=== PATIENT | female | born 1955 | race Caucasian/White ===

== ENCOUNTER 2020-04-06 09:28 | Emergency (ER) | payer OTHER, SELFPAY ==
[2020-04-06 09:36] VITALS: BP 140/73; PULSE 68; RESP 16; TEMP 36.5; O2SAT 100
--- NOTE | 2020-04-06 10:14 | ED.SKABFB ---
HPI - Skin/Abscess/Foreign Bdy General Chief complaint: Skin/Abscess/Foreign Body Stated complaint: left hand bite Time Seen by Provider: 04/06/20 09:55 Source: patient and RN notes reviewed Mode of arrival: ambulatory Limitations: no limitations History of Present Illness HPI narrative: Patient presents today complaining of swelling and redness to her left third finger. She believes that she was bit by a spider 1 week ago. She saw her primary care nurse practitioner 4 days ago, but was told that she did not need antibiotics at that time. Since that visit, her symptoms have significantly worsened and she is now draining pus. A few days after onset of symptoms, patient did find a spider in her bed. She has been cleaning with peroxide, applying ice, and Neosporin without relief. MD complaint: insect bite/sting Related Data Home Medications Medication Instructions Recorded Confirmed amlodipine 5 mg tablet 5 mg PO DAILY 10/11/19 04/06/20 bimatoprost 0.01 % eye drops 1 drop EACH EYE DAILY 10/11/19 04/06/20 cholecalciferol (vitamin D3) 50 2,000 unit PO DAILY 10/16/19 04/06/20 mcg (2,000 unit) tablet timolol 0.5 % eye drops 1 drop EACH EYE DAILY ml 10/16/19 04/06/20 atorvastatin 20 mg tablet 20 mg PO DAILY 10/28/19 04/06/20 Allergies Allergy/AdvReac Type Severity Reaction Status Date / Time latex Allergy Hives Verified 04/06/20 09:41 Review of Systems Review of Systems: Narrative: CONSTITUTIONAL: Denies body aches, fever, chills, or sweats. EYES: Denies visual changes, redness, or discharge. ENT: Denies rhinorrhea, congestion, sore throat, or otalgia. CARDIOVASCULAR: Denies chest pain, palpitations, or edema. RESPIRATORY: Denies cough or dyspnea. GASTROINTESTINAL: Denies abdominal pain, nausea, vomiting, or diarrhea. GENITOURINARY: Denies dysuria or hematuria. SKIN: D abscess and swelling to the left third finger MUSCULOSKELETAL: Denies back pain, joint pain, or myalgia. NEUROLOGIC: Denies headache, numbness, tingling, or weakness. PSYCH: Denies depression or anxiety. [facility] Social History Social History Smoking status: Never smoker Second hand tobacco smoke exposure: No Alcohol intake: current Comments At time of signature, I have reviewed and agree with nursing past medical, surgical, social and family history unless otherwise noted. Please see nursing chart for further information. There is no relevant family history pertinent to the presenting complaint Exam Narrative: Exam Narrative: GENERAL: Well-appearing, well-nourished, and in no acute distress. HEAD: Normocephalic, atraumatic. EYES: EOMI. No redness or drainage. Conjunctivae normal. ENT: Mucous membranes pink and moist. NECK: Normal AROM. CHEST: No respiratory distress. EXTREMITIES: Normal range of motion. No edema. SKIN: Warm, dry, no rash. Capillary refill normal. Normal skin turgor. Left 3rd finger: 2x2cm erythematous abscess with multiple pustules to the dorsum of the proximal phalax, dorsal aspect. Large amount of purulent material manually expressed. Tender to palpation. Distal sensation intact. Full AROM of the finger. NEURO: No focal deficits. Alert and oriented x3. Gait steady. PSYCH: Normal affect. No signs of depression or anxiety. Course Vital Signs Vital signs: Vital Signs Temperature 97.7 F 04/06/20 09:36 Pulse Rate 68 04/06/20 09:36 Respiratory Rate 16 04/06/20 09:36 Blood Pressure 140/73 04/06/20 09:36 Pulse Oximetry 100 04/06/20 09:36 Temperature 97.7 F 04/06/20 09:36 Pulse Rate 68 04/06/20 09:36 Respiratory Rate 16 04/06/20 09:36 Blood Pressure 140/73 04/06/20 09:36 Pulse Oximetry 100 04/06/20 09:36 Reviewed. Pt has been instructed to follow up with her PCP regarding her elevated blood pressure today. MDM - Skin/Abscess/Foreign Bdy Differential Diagnosis Differential diagnosis: Likely abscess of skin or subcutane
== END 2020-04-06 10:23 | disposition home or self-care (01) ==
PROVIDERS: Emergency Provider Nurse Practitioner; PCP Internal Medicine
DX: L02.414 Cutaneous abscess of left upper limb (principal); I10 Essential (primary) hypertension; E03.9 Hypothyroidism, unspecified
CPT/HCPCS: 99213; G0463

== ENCOUNTER 2020-08-02 08:54 | Outpatient (CLI) | payer OTHER, SELFPAY ==
--- NOTE | ~2020-08-02 | MM_ITS ---
EXAMINATION: MM screening felicia BI w bonita HISTORY: Screening TECHNIQUE: Craniocaudal and mediolateral oblique 3-D tomosynthesis images were obtained and synthetic 2-D images were generated. CAD analysis was submitted and interpreted. COMPARISON: Comparison to multiple prior studies sequentially, with oldest reviewed study dated 11/14. BREAST PARENCHYMAL COMPOSITION: There are scattered areas of fibroglandular density. FINDINGS: There is no evidence of suspicious mass, calcification, or architectural distortion to sugg est malignancy in either breast. There has been no suspicious interval change. IMPRESSION: 1. No mammographic evidence of malignancy. 2. Recommend routine screening mammography in one year. BI-RADS Category 1: Negative Reviewed, dictated and finalized at location A.
--- NOTE | ~2020-08-02 | US_ITS ---
EXAMINATION: US aorta [facility] DATE: 08/02/2020 08:45 INDICATION: Screening for abdominal aortic aneurysm TECHNIQUE: Grayscale, color Doppler, and pulsed Doppler images of the aorta and common iliac arteries were obtained. COMPARISON: None. FINDINGS: The proximal aorta measures 2.2 cm AP. The mid aorta measures 2.2 cm AP. The distal aorta measures 1. 7 cm AP. The right common iliac artery measures 1.3 cm. The left common iliac artery measures 1.0 cm. IMPRESSION: 1. Normal caliber abdominal aorta. Reviewed, dictated and finalized at location A.
== END 2020-08-02 08:55 | disposition home or self-care (01) ==
PROVIDERS: PCP Internal Medicine; Visit Provider Internal Medicine
DX: Z12.31 Encounter for screening mammogram for malignant neoplasm of breast (principal)
CPT/HCPCS: 76706; 77063; 77067

== ENCOUNTER 2022-01-22 13:45 | Outpatient (CLI) | payer OTHER, SELFPAY ==
--- NOTE | ~2022-01-22 | US_ITS ---
EXAMINATION: US thyroid EXAM DATE: 01/22/2022 14:19 INDICATION: E04.1 - Nontoxic single thyroid nodule. TECHNIQUE: Multiple grayscale and Doppler images of the thyroid were obtained (by a technologist who performed the scan) and subsequently reviewed. Individual nodules and recommendations may be reporte d in accordance with TI-RADS system as designated by the 2017 ACR White Paper TI-RADS committee. Comp arison is made to prior examination from 04/07/2019, 03/08/2017. FINDINGS: The right thyroid lobe measures 2.9 x 1.4 x 1.0 cm, the left measuring 3.0 x 1.1 x 1.0 cm. There is d iffusely heterogeneous thyroid echogenicity. Again there is a left thyroid lobe category TR 4 nodule measuring 7 x 5 x 7 mm, stable consistent with benign histology. IMPRESSION: Subcentimeter left thyroid lobe nodule unchanged, consistent with benign histology. Reviewed, dictated and finalized at location B. IMPRESSION: Subcentimeter left thyroid lobe nodule unchanged, consistent with b enign histology.
== END 2022-01-22 13:46 | disposition home or self-care (01) ==
LOC: ANHIMG 13:50
PROVIDERS: PCP Internal Medicine; Visit Provider Internal Medicine
DX: E04.1 Nontoxic single thyroid nodule (principal)
CPT/HCPCS: 76536

== ENCOUNTER 2022-09-10 15:36 | Outpatient (CLI) | payer OTHER, SELFPAY ==
--- NOTE | ~2022-09-10 | MM_ITS ---
EXAMINATION: MM screening felicia BI w bonita HISTORY: Screening TECHNIQUE: Craniocaudal and mediolateral oblique 3-D tomosynthesis images were obtained and synthetic 2-D images were generated. CAD analysis was submitted and interpreted. COMPARISON: Comparison to multiple prior studies sequentially, with oldest reviewed study dated 11/14. BREAST PARENCHYMAL COMPOSITION: There are scattered areas of fibroglandular density. FINDINGS: There is no evidence of suspicious mass, calcification, or architectural distortion to sugg est malignancy in either breast. There has been no suspicious interval change. IMPRESSION: 1. No mammographic evidence of malignancy. 2. Recommend routine screening mammography in one year. BI-RADS Category 1: Negative Reviewed, dictated and finalized at location A. [employer]
== END 2022-09-10 15:37 | disposition home or self-care (01) ==
PROVIDERS: PCP Family Medicine; Visit Provider Family Medicine
DX: Z12.31 Encounter for screening mammogram for malignant neoplasm of breast (principal)
CPT/HCPCS: 77063; 77067

== ENCOUNTER 2022-11-11 12:38 | Outpatient (CLI) | payer OTHER, SELFPAY ==
--- NOTE | ~2022-11-11 | US_ITS ---
Pelvic ultrasound. Clinical History: Postmenopausal bleeding Technique: Realtime transabdominal and transvaginal scanning of the pelvis was performed. Color flow Doppler and Doppler spectral analysis were performed. Findings: The uterus is anteverted. The endometrial stripe has a thickness of 3 mm. No focal mass is identified. The right ovary measures 1.6 x 1.7 x 2.3 cm. No significant right ovarian or adnexal mass is seen. The left ovary measures 2.7 x 1.8 x 2.6 cm. No significant left ovarian or adnexal mass is seen. There is no evidence of free fluid in the cul de sac. Impression: Unremarkable pelvic ultrasound. No abnormal endometrial thickening. Reviewed, dictated and finalized at [facility]. HOBBER Impression: Unremarkable pelvic ultrasound. No abnormal endometrial thickening.
== END 2022-11-11 12:39 | disposition home or self-care (01) ==
PROVIDERS: PCP Family Medicine; Visit Provider Family Medicine
DX: N95.0 Postmenopausal bleeding (principal)
CPT/HCPCS: 76830

== ENCOUNTER 2023-03-18 13:38 | Outpatient (CLI) | payer OTHER, SELFPAY ==
[2023-03-18 14:30] LABS: Influenza A QL RT-PCR Negative (Negative); Influenza B QL RT-PCR Negative (Negative); RSV RNA, RT-PCR Negative (Negative); SARS-CoV-2 RNA PCR Negative (Negative)
== END 2023-03-18 13:39 | disposition home or self-care (01) ==
PROVIDERS: PCP Family Medicine; Visit Provider Family Medicine
DX: R09.81 Nasal congestion (principal); Z20.822 Contact with and (suspected) exposure to COVID-19
CPT/HCPCS: 87637

== ENCOUNTER 2023-07-05 13:20 | Outpatient (RCR) | payer OTHER, SELFPAY ==
[2023-07-05 13:27] VITALS: BP_SYST 88
--- NOTE | 2023-07-05 16:53 | PTOPEVAL1 ---
Assessment and note entered by Phill Birch, PT, DPT Evaluation Information Assessment Status Evaluation Diagnosis R shoulder pain Subjective Information Pt states her shoulder is doing much better now compared to when last saw her doctor. Looking back now she states this is from overworking with weights and resistance bands during silver sneakers. She states life got busy and she was not able to attend classes for a few years and she thinks this really helped. She states when sleeping on her R shoulder she will get pain. She also reports feeling a small popping feeling. Reported Pain Level Pain Score 1: Self Report Assessment PT Clinical Summary Markus presents to therapy today for her initial evaluation with a diagnosis of R shoulder pain. Today she demonstrates decreased R shoulder active and passive ROM when compared to her L shoulder but strength is about equal. She has an asymmetric resting position of her scapulae. She reports pain with resistance at end shoulder ROM. She states she plans to get back to her regular exercise routine and would like to try that and the HEP she was issued today for a few weeks and see if her shoulder gets better on its own. She will follow up in one month if needed Plan of Care Interventions Electrical Stimulation,Hot Pack/Cold Pack,Manual Therapy,Neuro Re-education,Patient/Caregiver Educati,Therapeutic Activities,Therapeutic Exercise PT Services Indicated Yes Treatment Frequency and follow up in 1 month Duration These treatments will address the objective and functional deficits as defined above. The patient will be advanced safely and appropriately in order for the patient to progress towards his/her prior level of function. Additional exercises will be introduced and as well as a comprehensive home exercise program upon discharge, if needed, ?to ensure carryover of functional gains achieved in the clinic. This treatment plan has been reviewed and agreement upon by the patient.
--- NOTE | 2023-08-09 08:57 | PTOPDC ---
Assessment and note entered by Phill Birch, PT, DPT Evaluation Information Assessment Status Discharge - Pt Not Present Diagnosis R shoulder pain Subjective Information Pt called and states she has been doing her exercises and her shoulder is doing really well. She does not feel like she needs to return to therapy. Assessment PT Clinical Summary Mica was evaluated on 07/05/23 and has not completed any subsequent treatment. She will be discharged at this time per her request.
== END 2023-08-09 10:10 | disposition home or self-care (01) ==
LOC: ANHGOSHPT 13:20
PROVIDERS: PCP Family Medicine; Visit Provider Family Medicine
DX: M25.511 Pain in right shoulder (principal)
CPT/HCPCS: 97110; 97140; 97161

== ENCOUNTER 2024-01-10 12:47 | Outpatient (CLI) | payer OTHER, SELFPAY ==
--- NOTE | ~2024-01-10 | DEXA_ITS ---
Bone Density Report Name: MEGGAN CRAMER Age: 68 Sex: Female Ethnicity: White Date of : 1955 Indication: postmenopausal; screening for osteoporosis; height loss; Referring Provider: KENNY ACEVEDO Study: Bone densitometry was performed. Exam Date: January 10, 2024 Accession number: [id number] Bone Density: Region BMD T-score Z-score Classification AP Spine(L1-L4) 1.154 1.0 3.0 Normal Femoral Neck (Left) 0.800 -0.4 1.3 Normal Total Hip (Left) 1.080 1.1 2.6 Normal Femoral Neck (Right) 0.770 -0.7 1.0 Normal Total Hip (Right) 1.070 1.1 2.5 Normal Total Hip Mean 1.075 1.1 2.6 Normal World Health Organization criteria for BMD impression classify patients as: Normal (T-score at or above -1.0), Osteopenia (T-score between -1.0 and -2.5), or Osteoporosis (T-score at or below -2.5). 10-year Fracture Risk: FRAX not reported because: All T-scores for Spine Total, Hip Total, Femoral Neck at or above -1.0 Clinical Information Provided by Patient: Has used the following medications: Vitamin D Patient maximum height was 61.5 No regular weight bearing exercise Drinks caffeinated beverages Onset of menses at age 13 Number of children 2 Impression: The patient has normal bone mass. Discussion: BONE DENSITY IS ABOVE THE MINIMUM DESIRABLE LEVEL AT ALL SKELETAL SITES TESTED. This patient?s bone mineral density is above the minimum desirable level (T-score -1.0 or better) at all sites measured. The patient should follow a healthful lifestyle (good nutrition with adequate calcium and vitamin D, and appropriate weight-bearing exercise). Follow-Up: Consider repeating this study in 5 years or sooner if there is some new clinical indication. Reported by: MERISSA on 01/10/2024 1:27:00 PM. Reviewed, dictated and finalized at location AJorge Luis [facility]
--- NOTE | ~2024-01-10 | MM_ITS ---
EXAMINATION: MM screening felicia BI w bonita HISTORY: Screening TECHNIQUE: Craniocaudal and mediolateral oblique 3-D tomosynthesis images were obtained and synthetic 2-D images were generated. CAD analysis was submitted and interpreted. COMPARISON: Comparison to multiple prior studies sequentially, with oldest reviewed study dated 03/08. BREAST PARENCHYMAL COMPOSITION: Not dense: There are scattered areas of fibroglandular density. FINDINGS: There is no evidence of suspicious mass, calcification, or architectural distortion to sugg est malignancy in either breast. There has been no suspicious interval change. IMPRESSION: 1. No mammographic evidence of malignancy. 2. Recommend routine screening mammography in one year. BI-RADS Category 1: Negative Reviewed, dictated and finalized at location A.
== END 2024-01-10 12:48 | disposition home or self-care (01) ==
PROVIDERS: PCP Family Medicine; Visit Provider Family Medicine
DX: Z12.31 Encounter for screening mammogram for malignant neoplasm of breast (principal); Z13.820 Encounter for screening for osteoporosis; Z78.0 Asymptomatic menopausal state
CPT/HCPCS: 77063; 77067; 77080

== ENCOUNTER 2025-06-30 11:40 | Emergency (ER) | payer MEDICARE, SELFPAY ==
--- OUTSIDE RECORDS SUMMARY | 2010-07-17 04:15 | XMS_ITS | Continuity of Care Document ---
Author Organization [facility] Address [address] [place] [address] Phone Care Team Providers Care Digital Art Director Name Role Phone ShanellebettyManny Unavailable Unavailable Procedures Procedure Date Office/outpatient Visit, Est Fundus Photography W/ Report Office/outpatient Visit, Est Eye Exam Established Pt Office/outpatient Visit, Est Visual Field Examination(s) Office/outpatient Visit, Est Fundus Photography W/ Report Office/outpatient Visit, Est Visual Field Examination(s) Office/outpatient Visit, Est Office/outpatient Visit, Est Fundus Photography W/ Report Visual Field Examination(s) Office/outpatient Visit, Est Eye Exam Established Pt Post-op Follow-up Visit Laser Surgery Of Eye Advance Directives Directive Yes / No Effective Date File Name No Information Encounters Encounter Description Practice Location Reason(s) For Visit Diagnoses Date Provider Providers Copied on Encounter Office/outpat ient Visit, Est [employer], located within [facility], [address], [place], [place], [address], [place] tel:[phone] [facility] No Information Sep-2 3-201 0 Doisy Edward. [facility] , [address], [place], [place], [facility], [place]. tel:[phone] Referring Provider: Manny Barr, [facility] [address], [place], [place], [facility]. tel:[phone] Office/outpat ient Visit, [facility], [address] [place] [address] [address], [place], [place], [address], [place] tel:[phone] [facility] [place] No Information Apr- 9-201 0 Krishnasamy Yazan. [facility] [address], [place], [place], [facility], [place]. tel:[phone] [facility], [address] [place] [address] [address], [place], [place], [address], [place] tel:[phone] SEC [facility] No Information Apr-2 9-201 0 Mead OD Ziggy. [facility] , [address], [place], [place], [facility], [place]. tel:[phone] Office/outpat ient Visit, [facility], [address] [place] [address] [address], [place], [place], [address], [place] tel:[phone] SEC [facility] No Information Apr-2 6-201 0 Jesus Bryant. [address] [place], [place] [address]ate Center , [address], [place], [place], [facility], [place]. tel:[phone] [facility] Eye [facility], [address] [place] [address] [address], [place], [place], [address], [place] tel:[phone] SEC [facility] No Information Dec-2 8-200 9 Jesus Bryant. [address] [place], [place] [address]ate Center , [address], [place], [facility], [place]. tel:[phone] Referring Provider: Manny Barr, [facility] [address], [place], [facility]. tel:[phone] Office/outpat ient Visit, [facility], [address], [place], [place], [address], [place] tel:[phone] SEC [facility] No Information May-3 1-200 9 Jesus Bryant. [address] , [address], [place], [facility], . tel:[phone] Referring Provider: Manny Barr, [facility] [address], [place], [facility]. tel:[phone] Office/outpat ient Visit, [facility], [address] [place] [address] [address], [place], [place], [address], [place] tel:[phone] SEC [facility] No Information Apr-0 8-200 9 Krishnasamy Yazan. [address] [place], [place] [address]ate [address], [place], [facility], [place]. tel:[phone] [facility] Eye [facility], [address], [place], [place], [address], [place] tel:[phone] SEC [facility] No Information Dec-0 1-200 8 Jesus Bryant. [address] [place], [place] [address]ate Center , [address], [place], [facility], [place]. tel:[phone] Referring Provider: Manny Barr, [facility] [address], [place], [facility]. tel:[phone] Office/outpat ient Visit, [facility], [address] [place] [address] [address], [place], [place], [address], [place] tel:[phone] [facility] [place] No Information Apr-2 3-200 8 Jesus Bryant. [address] [place], [place] [address]ate Center , [address], [place], [facility], [place]. tel:[phone] Office/outpat ient Visit, Est [facility], [address] [place] [address] [address], [place], [place], [address], [place] tel:[phone] SEC [facility] No Information 8-200 8 Jesus Bryant. [address] [facility] , [address], [place], [facility], . tel:[phone] Referring Provider: Manny Barr, [facility] [address], [place], [facility]. tel:[phone] [facility], [address], [place], [place], [address], [place] tel:[phone] SEC [facility] No Information Jul-0 1-200 7 Doibetty Bryant. [address] [facility] , [address], [place], [facility], [place]. tel:[phone] Referring Provider: Manny Barr, [facility] [address], [place], [facility]. tel:[phone] Office/outpat ient Visit, Est [facility], [address] [place] [address] [address], [place], [place], [address], [place] tel:[phone] SEC [facility] No Information February-3 0-200 7 Jesus Bryant. [facility]sie Guerrero, [address], [place], [facility], [place]. tel:[phone] [facility], [address], [place], [place], [address], [place] tel:[phone] SEC [facility] No Information Jan-1 3-200 7 Jesus Bryant. [facility] , [address], [place], [facility], [place]. tel:[phone] [facility], [address], [place], [place], [address], [place] tel:[phone] SEC [facility] No Information Dec-2 1-200 7 Jesus Bryant. [address] [facility] [place] , [address], [place], [address], [place]. tel:[phone] [facility], [address], [place], [place], [address], [place] tel:[phone] SEC [facility] No Information 200 7 Jesus Bryant. [address] [facility] , [address], [place], [address], [place]. tel:[phone] Family History Family Member Type Diagnosis Age At Onset No Information Payers Payer name Insurance type Covered republican ID Authoriza tion(s) No Information Social History Type Description Quantity Date Captured Comments Sex Female Smoking Status No Information Chief Complaint And Reason For Visit No Information Reason For Referral Reason For Referral No Information History Of Present Illness Encounter Date Complaint History Of Prese nt Illness No Information Functional Status Date Functional Assessmen t No Information Instructions Date Instruction Additional Infor mation No Information Assessments Type Assessment Date No Information Patient Care Teams Name Effective Dates (start - stop) Status Members No Information
--- OUTSIDE RECORDS SUMMARY | 2010-07-17 04:15 | XMS_ITS | Continuity of Care Document ---
Author Organization [facility] Address [address] [place] [address] Phone Care Team Providers Care Drive Tester Name Role Phone ShanellebettyManny Unavailable Unavailable Procedures [...] Copied on Encounter Office/outpat ient Visit, [facility], [address], [place], [place], [address], [place] tel:[phone] [facility] No Information Sep-2 3-201 0 Doisy Edward. [facility] , [address], [place], [place], [facility], [place]. tel:[phone] Referring Provider: Manny Barr, [facility] [address], [place], [facility]. tel:[phone] Office/outpat ient Visit, [facility], [address] [place] [address] [address], [place], [place], [address], [place] tel:[phone] [facility] [place] No Information Apr- 9-[address] [facility] [address], [place], [facility], [place]. tel:[phone] Located within [facility], [address] [place] [address] [address], [place], [place], [address], [place] tel:[phone] SEC [facility] No Information Apr-2 9-201 [address] Mead [address] Ziggy. [facility] , [address], [place], [facility], [place]. tel:[phone] Office/outpat ient Visit, [facility], [address] [place] [address] [address], [place], [place], [address], [place] tel:[phone] SEC [facility] No Information Apr-2 6-201 0 Jesus Bryant. [address] [place], [place] [address]ate Center , [address], [place], [facility], [place]. tel:[phone] [facility], [address] [place] [address] [address], [place], [place], [address], [place] tel:[phone] SEC [facility] No Information Dec-2 8-200 9 Jesus Bryant. [address] [place], [place] [address]ate Center , [address], [place], [facility], [place]. tel:[phone] Referring Provider: Manny Barr, [facility] [address], [place], [facility]. tel:[phone] Office/outpat ient Visit, [facility], [address], [place], [place], [address], [place] tel:[phone] SEC [facility] No Information May-3 1-200 9 Jesus Bryant. [address] , [address], [place], [facility], . tel:[phone] Referring Provider: Manny Brar, [facility] [address], [place], [facility]. tel:[phone] Office/outpat ient Visit, [facility], [address] [place] [address] [address], [place], [place], [address], [place] tel:[phone] SEC [facility] No Information Apr-0 8-200 9 Krishnasamy Yazan. [address] [place], [place] [address]ate [address], [place], [facility], [place]. tel:[phone] [facility], [address], [place], [place], [address], [place] tel:[phone] SEC [facility] No Information Dec-0 1-200 8 Jesus Bryant. [address] [place], [place] [address]ate Center , [address], [place], [facility], [place]. tel:[phone] Referring Provider: Manny Barr, [facility] [address], [place], [facility]. tel:[phone] Office/outpat ient Visit, [facility], [address] [place] [address] [address], [place], [place], [address], [place] tel:[phone] [facility] [place] No Information Apr-2 3-200 8 Jesus Bryant. [address] [place], [place] [address]ate Center , [address], [place], [facility], [place]. tel:[phone] Office/outpat ient Visit, Est [facility], [address] [place] [address] [address], [place], [place], [address], [place] tel:[phone] SEC [facility] No Information 8-200 8 Jesus Bryant. [address] [facility] , [address], [place], [facility], . tel:[phone] Referring Provider: Manny Barr, [facility] [address], [place], [facility]. tel:[phone] Located within [facility], [address], [place], [place], [address], [place] tel:[phone] SEC [facility] No Information Jul-0 1-200 7 Doibetty Bryant. [address] [facility] , [address], [place], [facility], [place]. tel:[phone] Referring Provider: Manny Barr, [facility] [address], [place], [facility]. tel:[phone] Office/outpat ient Visit, Est Located within [facility], [address] [place] [address] [address], [place], [place], [address], [place] tel:[phone] SEC [facility] No Information February-3 0-200 7 Jesus Bryant. [facility] Chelsie Guerrero, [address], [place], [facility], [place]. tel:[phone] Located within [facility], [address], [place], [place], [address], [place] tel:[phone] SEC [facility] No Information Jan-1 3-200 7 Jesus Bryant. [facility] , [address], [place], [facility], [place]. tel:[phone] Located within [facility], [address], [place], [place], [address], [place] tel:[phone] [facility] No Information Dec-2 1-200 7 Jesus Bryant. [address] [facility] [place] , [address], [place], [address], [place]. tel:[phone] Located within [facility], [address], [place], [place], [address], [place] tel:[phone] SEC [facility] No Information 200 7 Jesus Bryant. [address] [facility] , [address], [place], [address], [place]. tel:[phone] Family History Family Member Type Diagnosis Age At Onset No Information Payers Payer name Insurance type Covered democrat ID Authoriza tion(s) No Information Social History [...]
--- OUTSIDE RECORDS SUMMARY | 2025-06-30 11:43 | XMS_ITS | Clinical Summary ---
Author Organization [facility] Address [address] [place] [address] Care Team Providers Care Support Dba Name Role Phone Ventura Muse Primary Care Provider [phone] Richard Barba MD Unavailable [phone] Allergies Active Allergy Reactions Criticality Noted Date Comments Latex Redness Low 03/31/2022 Medications amLODIPine (NORVASC) 5 mg tablet take 1 Tablet by oral route every day 0 0 6 Active metoprolol XL (TOPROL-XL) 25 mg 24 hr tablet take 1 tablet by oral route every day 0 0 6 Active loratadine (CLARITIN) 10 mg tabletIndicatio ns:Allergic Rhinitis Take 1 tablet (10 mg total) by mouth as needed for allergies Active acyclovir (ZOVIRAZ) 5 % creamIndication s:cold sores Apply 1 application topically as needed 2 Active levothyroxine (SYNTHROID) 75 mcg tablet Take 1 tablet (75 mcg total) by mouth daily 2 Active pseudoephedrine (SUDAFED) 30 mg tabletIndicatio ns:Nasal Congestion Take 30 mg by mouth every 4 (four) hours as needed for congestion Active oxymetazoline HCl (AFRIN, OXYMETAZOLINE, NASL) Administer 1 spray into affected nostril(s) as needed Active Active Problems Problem Noted Date Diagnosed Date Primary open angle glaucoma (POAG) of both eyes, severe stage 03/31/2022 Overview (05/20/2022): ab externo Xen w/ MMC, Right eye 04/01/22 Assessment & Plan (12/22/2022 3:13 PM PHARMACY ASSOCIATE): S/P XEN/MMC OU - IOP at goal off gtts HVF full with OD with few nonspecific paracentral points. OCT with healthy RNFL OU OK to fit with RGP - soft CTL ok if it does not override the bleb F/U Dr. Barba in 4 mo Assessment & Plan (09/15/2022 12:29 PM PHARMACY ASSOCIATE): XEn OD healing well, OS doing well off steroids. May be able to tolerate IOP in high teens given disc and VF. Will recheck and if at goal ok to D/C F/U with me in 2-3 mo HVF OU/OCT/GCL Assessment & Plan (08/13/2022 10:47 AM CDT): POW1 post XEN OS 10 - Nice bleb - STOP moxifloxacin 4 times daily - Taper durezol 4-3-2 and stay on BID until follow up - Holding IOP lowering medications - Post op instructions reviewed Return: 4 week for post op exam. Sooner if questions or concerns. Will want to discuss contact lens for OD at next visit. Assessment & Plan (08/06/2022 6:25 AM CDT): POD1 post XEN OS 10.10.15 - moxifloxacin 4 times daily - durezol 4 times daily - Holding IOP lowering medications - Post op instructions reviewed Return: 1 week for post op exam. Sooner if questions or concerns. Assessment & Plan (06/30/2022 12:21 PM CDT): IOP OS too high, OD off gtts with IOP at goal. Great result thus far. RBA discussed in detail - she leave in 3 weeks and cannot do surgery until return. Proceed with XEN/MMC OS ab interno. Consulting discusse Assessment & Plan (05/28/2022 1:21 PM CDT): ab externo Xen w/ MMC, Right eye 04/01/22 Right eye: Prednisolone - Qday X 4 days then D/C Holding IOP-lowering drops. Will need new MRx as she is not back to 20/20, no CME on exam - ? Glaucoma VF loss given starting IOP's - can worsen with time Left eye: IOP too high, nervous about surgery but vision has dropped a bit - still ph to 20/20. Rec same procedure as OD given IOP off gtts. Pt would like to observe for now until OD improves. Continue comb 0/2, dorz 0/2 OS, lumigan Qhs OS, add rhopressa Qhs OS F/U IOP check in 4 weeks - if not in lower 20's will proceed. Otherwise hold until vision improves OD. Mac OCT today Assessment & Plan (04/09/2022 11:14 AM CDT): POW1 SP ab externo Xen w/ MMC, Right eye 04/01/22 - iop 12 and diffuse bleb with hypovascularity, vicryls intact, no leak Postoperative instructions were given. The patient is to use: Stop Moxifloxacin OD Durezol QID OD Hold glaucoma drops OD for now Signs, symptoms of retinal detachment, tear, hole, and endophthalmitis were reviewed and the patient is to call immediately for concerns. We discussed that things should improve until they stabilize. Should there be any worsening of pain, vision, or redness the patient is to call. RTC in 2 weeks for iop check to discuss if pt needs surgery OS Other eye: Plan for ab interno Xen w/ MMC OS, pre-op diamox Continue comb 0/2, dorz 0/2 OS Assessment & Plan (04/02/2022 9:40 AM CDT): POD1 SP ab externo Xen w/ MMC, Right eye 04/01/22 - iop 10 right eye (OD) Postoperative instructions were given. The patient is to use: Moxifloxacin QID X 1 week OD Prednisolone Acetate 1% q2 hrs while awake OD vs durezol qid right eye (OD) - c/o intolerance to PF Hold glaucoma drops OD for now Patient is to wear the shield at bedtime X 1 week. Signs, symptoms of retinal detachment, tear, hole, and endophthalmitis were reviewed and the patient is to call immediately for concerns. We discussed that things should improve until they stabilize. Should there be any worsening of pain, vision, or redness the patient is to call. Other eye: Plan for ab interno Xen w/ MMC OS, pre-op diamox Continue 2 classes OS, add dorz BID OS Assessment & Plan (03/31/2022 12:08 PM CDT): IOP way too elevated - given surgery will be back to back - will proceed with XEN over Ahmed for safety. Does not take flonase but has it at home - do not use. Diamo 500 mg PO tonight and tomorrow. Urgeny surgery tomorrow for OD - more vision loss trc APD. Then next week the same OS. Combigan BID OS RBA and consulting discussed, proceed with ab interno XEN/MMC OD tomorrow then OS next week. Primary open angle glaucoma of right eye, severe stage 03/31/2022 Assessment & Plan (04/23/2022 10:31 AM CDT): POW3 SP ab externo Xen w/ MMC, Right eye 04/01/22 - iop 12 and diffuse bleb with hypovascularity, vicryls intact, no leak Postoperative instructions were given. The patient is to use: Durezol QID right eye (OD), when you run out can switch to prednisolone Hold glaucoma drops OD for now Signs, symptoms of retinal detachment, tear, hole, and endophthalmitis were reviewed and the patient is to call immediately for concerns. We discussed that things should improve until they stabilize. Should there be any worsening of pain, vision, or redness the patient is to call. RTC in 2 weeks for iop check to discuss if pt needs surgery OS Other eye: Plan for ab interno Xen w/ MMC left eye (OS) iop 23, pre-op diamox; tried to discuss scheduling today but pt would like to discuss at next appt; Tmax 40's, so borderline iop might be OK; Continue comb 0/2, dorz 0/2 OS Primary open angle glaucoma of left eye, severe stage 03/31/2022 Overview (03/31/2022): Added automatically from request for surgery [id number] Dysfunction of both eustachian tubes 07/25/2017 Assessment & Plan (07/25/2017 7:46 AM CDT): Patient demonstrates mild eustachian tube dysfunction that primarily affecting her during atmospheric changes. Today's otologic examination was unremarkable. Patient was instructed to start fluticasone nasal spray 1 week prior to a planned flight. Patient was also instructed to take Sudafed [id number] the day of flying as well as sprain her nose with oxymetazoline nasal spray 1 hour prior to flight. Patient was also shown how to perform nasal Valsalva maneuver to help ventilate the middle ear space. Essential hypertension 12/25/2015 Overview (01/29/2017): Essential hypertension Hypothyroidism 03/10/2014 Overview (01/28/2017): HYPOTHYROIDISM NOS Immunizations Immunization Administration Dates Next Due Pfizer SARS-CoV-2 Monovalent Vaccination (12+ Yrs) PURPLE 02/12/2021,01/15/2021 Surgical History Surgery Date Site/Laterality Comments CATARACT EXTRACTION W/ INTRAOCULAR LENS IMPLANT 10/25/1996 - 10/24/[address] Lee in [place] TRABECULECTOMY Bilateral x2, Dr. Joyce WISDOM TOOTH EXTRACTION 10/25/1973 - 10/24/1974 SHUNT EXTERNALIZATION 04/01/2022 Right Xen w/ MMC SHUNT EXTERNALIZATION 08/05/2022 Left Xen w/ MMC CATARACT EXTRACTION W/ INTRAOCULAR LENS IMPLANT 10/25/1999 - 10/24/[address] Lee [place] Medical History Medical History Date Comments Disorder of thyroid Thyroid dise ase Glaucoma glaucoma Ear problems Hypertension Delayed emergence from general anesthesia groggy with colonosocpy in past, did well with most recent eye surgery 04/01/22 Family History Medical History Relation Name Comments Other Brother 2 Alive and well; Abdominal Aortic Aneurysm Father AA A; Coronary artery disease Father Chloe nary artery disease; Glaucoma Father Other Father AAA, extensive CAD (sees Dr. Henry), atherosclerosis; Atrial fibrillation Mother Atrial f ibrillation; Cause of : Atrial fibrillation Other Other 1 No family histo ry of Thyroid disorder; Hypothyroidism Other 2 Family histor y of Hypothyroidism; Anesthesia problems Neg Hx Blindness Neg Hx Macular degeneration Neg Hx Relation Name Status Comments Brother 1 Alive Brother 2 Father Alive Mother (Age 81) Other 1 Other 2 Social History Tobacco Use Types Packs/Day Years Used Date Smoking Tobacco: Never Smokeless Tobacco: Never Tobacco Cessation:Counseling Given: Not Answered Alcohol Use Standard Drinks/Week Comments Yes 2 (1 standard drink = 0.6 oz pur e alcohol) AUDIT-C Answer Date Recorded Q1: How often do you have a drink containing alc ohol? 2-3 times a week 08/05/2022 Q2: How many drinks containi ng alcohol do you have on a typical day when you are drinking? 1 or 2 08/05/2022 Frequency of Binge Drinking Not on file 07/25 Comments Unknown Sex and Gender Information Value Date Recorded Sex Assigned at Not on file Legal Sex Female 3:57 AM PHARMACY ASSOCIATE Gender Identity Female 10/04/2024 5:04 AM PHARMACY ASSOCIATE Sexual Orientation Not on file Obstetrics History Last Filed Vital Signs Vital Sign Reading Time Taken Comments Blood Pressure 138/80 10/04/2024 5:33 PM PHARMACY ASSOCIATE Pulse 84 10/04/2024 5:33 PM PHARMACY ASSOCIATE Temperature 36.4 C (97.6 F) 10/04/2024 5:33 PM PHARMACY ASSOCIATE Respiratory Rate 17 10/04/2024 5:33 PM PHARMACY ASSOCIATE Oxygen Saturation 97% 10/04/2024 5:33 PM PHARMACY ASSOCIATE Inhaled Oxygen Concentration - - Weight 59 kg (130 lb) 10/04/2024 5:33 PM PHARMACY ASSOCIATE Height 152.4 cm (5') 10/04/2024 5:33 PM PHARMACY ASSOCIATE Body Mass Index 25.39 10/04/2024 5:33 PM PHARMACY ASSOCIATE Plan of Treatment Health Maintenance Due Date Last Done Comments Breast Cancer Screening-Mammogram 1955 Depression Screening 1955 Hepatitis C Screening 1955 Osteoporosis Screening-Bone Density Scan 1955 DTaP/Tdap/Td Vaccine (1 - Tdap) 1966 Hepatitis B Screening 1973 Pneumococcal vaccine 65+ (1 of 1 - PCV) 2005 Zoster Vaccine (1 of 2) 2005 Colon Cancer Screening-Colonoscopy 10/22/20182007 Well Visit 65+ 2020 Fall Risk Assessment 08/05/2023 08/05/2022 Covid-19 Vaccine ( season) 2024, 01/15/2021 Influenza Vaccine (#1) 2025 Colon Cancer Screening-CT Colonography Discontinued Colon Cancer Screening-DNA Stool Discontinued 10/22/20 Colon Cancer Screening-FIT Discontinued 10/22/2008 Colon Cancer Screening-Sigmoidoscopy Discontinued 09/25 Medical Devices Implanted Type Area Cooler Worker Device Identifier Shelf Expiration Date Model / Serial / Lot [employer] Xen 150um 45um 6mm Treatment System Preload Injector Intraocular Latex Free 5513-001 - [id number] - [id number] Implanted:Qty: 1 on 04/01/2022 by Farida Poon MD at [facility] Other - see comments Right: Eye [employer] [id number] 07/24/2024 5513-001 / [id number] / [id number] [employer] Xen 150um 45um 6mm Treatment System Preload Injector Intraocular Latex Free 5513-001 - [id number] - [id number] Implanted:Qty: 1 on 08/05/2022 by Farida Poon MD at [facility] Other - see comments Left: Eye [employer] [id number] 08/24/2024 5513-001 / [id number] / [id number] Procedures Procedure Name Priority Date/Time Associated Diagnosis Comments COLONOSCOPY 10/22/2008 12:00 AM PHARMACY ASSOCIATE from Last 3 Months or Most Recently Relevant to Health Maintenance Results * COLONOSCOPY (10/22/2008 12:00 AM PHARMACY ASSOCIATE) Anatomical Region Laterality Modality Other Narrative 10/22/2008 12:00 AM PHARMACY ASSOCIATE Ordered by an unspecified provider. Procedure Note ProviderMeg MD - 10/22/2008 12:00 AM CST PROCEDURE REPORT Patient: MICA TOM Account: [id number] Room No: : 1955 Patient Type: OPA Attend.: Andrei Siddiqi M.D. Admit Date:10/22/2008 Dict.: Andrei Siddiqi M.D. Disch. Date: NAME OF PROCEDURE: Colonoscopy HISTORY: A 53-year-old female presents for screening colonoscopy. PHYSICAL EXAMINATION: Well-developed female. Lungs are clear. Cardiovascular examination was unremarkable. PROCEDURE: Colonoscopy was performed with the [employer] video endoscope.The patient was premedicated with Demerol 100, versed 4. On digital exam, shehas grade 2 hemorrhoids. We inserted the endoscope and advanced it to the cecum. The colon was well prepped and visualized. We carefully searchedthe colonic mucosa, could find no evidence of inflammatory or neoplasticchange. We brought the scope back, retroflexed in the rectum, examined the hemorrhoidal tissue internally, straightened the scope and removed it.The patient tolerated the procedure without difficulty. POSTOPERATIVE DIAGNOSIS: Hemorrhoidal disease, otherwise normal. Andrei Siddiqi M.D. DR/johnathon TD: 10/23/2008 06:49 CC: Dr. Ziggy Dela Cruz Historical Provider ENDOSCOPY PROCEDURES Ilsa l Result from Last 3 Months or Most Recently Relevant to Health Maintenance Insurance [facility] Member Subscriber Plan / Payer (Ef fective 2021-Present) Name:Mica Vargas Relation to Subscriber:Self Name:Mica Vargas Payer ID:[id number] (NAIC) Type:MEDICARE RISK OTHER Address: [address] [place] [id number] [facility] Care Teams Support Dba Relationship Specialty Start Date End Date Ventura Muse DO PCP - General Family Medicine 03/31/22 Richard Barba MD [address] [address] Referring Physician Ophthalmology 03/31/22
--- OUTSIDE RECORDS SUMMARY | 2025-06-30 11:43 | XMS_ITS | Clinical Summary ---
Author Organization [facility] Address [address] [place] [address] Care Team Providers Care Casino Surveillance Officer Name Role Phone Daylin Pérez MD Primary Care Provider [phone] Source Comments [facility],non-owned Affiliates and Associated Physician Practices is amultiple site organization consisting of ambulatory clinics and hospital sitesin [place], [place], [place] and [place]. This disclosure is being madepursuant to the Care Everywhere program and may not contain all information available regarding this patient. Last updated 18.[facility] Allergies No known active allergies Medications * Be aware that medications may not be up to date on this document. Alwaysverify current medications with the patient. levothyroxine (SYNTHROID) 75 MCG tablet Take 75 mcg by mouth daily before breakfast Active amLODIPine (NORVASC) 5 MG tablet Take 5 mg by mouth once daily Active metoprolol succinate XL 24hr (TOPROL XL) 25 MG tablet Take 25 mg by mouth once daily Active timolol maleate (TIMOPTIC) 0.5 % ophthalmic solutionIndicat ions:Angle-Clos ure Glaucoma 1 Drop 2 times daily Reasons: Angle-Closure Glaucoma Active bimatoprost (LUMIGAN) 0.01 % ophth solution Instill 1 Drop into both eyes at bedtime Active fluticasone propionate (FLONASE) 50 MCG/ACT nasal sprayIndication s:Seasonal allergic rhinitis due to pollen [place] 2 Sprays into each nostril once daily 1 Bottle 7 Active Social History Tobacco Use Types Packs/Day Years Used Date Smoking Tobacco: Never Comments No Sex and Gender Information Value Date Recorded Sex Assigned at Not on file Legal Sex Female 5:32 PM CDT Gender Identity Not on file Sexual Orientation Not on file Last Filed Vital Signs Vital Sign Reading Time Taken Comments Blood Pressure 136/92 02/02/2017 10:38 AM CDT Pulse 77 02/02/2017 10:38 AM CDT Temperature 37.2 C (98.9 F) 02/02/2017 10:38 AM CDT Respiratory Rate 16 02/02/2017 10:38 AM CDT Oxygen Saturation 98% 02/02/2017 10:38 AM CDT Inhaled Oxygen Concentration - - Weight 63.5 kg (140 lb) 02/02/2017 10:38 AM CDT Height 154.9 cm (5' 1) 02/02/2017 10:38 AM CDT Body Mass Index 26.45 02/02/2017 10:38 AM CDT Plan of Treatment Health Maintenance Due Date Last Done Comments BONE DENSITY TESTING 1955 COLOGUARD (AGES 45-75) - COL ON CA SCREENING 1955 COLON MONITORING 1955 COLONOSCOPY - COLON CA SCREENING 1955 CT COLONOGRAPHY - COLON CA SCREENING 1955 Colorectal Cancer Screening 1955 FIT - COLON CA SCREENING 1955 FLEX SIG - COLON CA SCREENING 1955 LIPID TESTING 1955 MAMMOGRAM 1955 MEDICARE AWV 12 MONTHS 1955 HEPATITIS C SCREENING 03/31/1973 DTAP/TDAP/TD VACCINES (1 - Tdap) 1974 PNEUMOCOCCAL VACCINE 50+ (1 of 1 - PCV) 2005 ZOSTER VACCINE (1 of 2) 2005 DEPRESSION SCREENING 10/25/2024 COVID-19 VACCINE (1 - 2023-2 5 season) 2025 INFLUENZA VACCINE (#1) 2025 Respiratory Syncytial Virus (RSV) Vaccine Pt: or over 60 yrs (1 - 1-dose 75+ series) 2030 HEPATITIS B VACCINE Aged Out No longe r eligible based on patient's age to complete this topic HIB VACCINE Aged Out No longer eligi ble based on patient's age to complete this topic HPV VACCINE Aged Out No longer eligi ble based on patient's age to complete this topic MENINGOCOCCAL (Group B) VACC INE SHARED DECISION-MAKING Aged Out No longer eligibl e based on patient's age to complete this topic MENINGOCOCCAL GROUPS A/C/Y/W VACCINE Aged Out No longer eligible b ased on patient's age to complete this topic Insurance ([employer]) [address] [place], [place] [id number] [place] [address] MEDICARE ADV PPO Care Teams Casino Surveillance Officer Relationship Specialty Start Date End Date Daylin Pérez MD [address] [place] [address] PCP - General Family Medicine 02/02/17
--- OUTSIDE RECORDS SUMMARY | 2025-06-30 11:43 | XMS_ITS | Encounter Summary ---
Author Organization [facility] Address [address] [facility] [place] [address] Care Team Providers Care Speech/Language Therapist Name Role Phone Daylin Pérez MD Primary Care Provider [phone] Encounter Details Date Type Department Care Team (Late st Contact Info) Description 07/25/2024 Lab Requisition [facility] - DermPath Lab [address] [place] [address] Sarah Lind DO [address] [facility] [address] [place] [address] Social History Tobacco Use Types Packs/Day Years Used Date Smoking Tobacco: Never Comments No Sex and Gender Information Value Date Recorded Sex Assigned at Not on file Legal Sex Female 5:32 PM CDT Gender Identity Not on file Sexual Orientation Not on file documented as of this encounter Plan of Treatment Not on file documented as of this encounter Procedures Procedure Name Priority Date/Time Associated Diagnosis Comments DERMATOPATHOLOGY Routine 07/25/2024 10:5 4 AM CDT documented in this encounter Results * DERMATOPATHOLOGY (07/25/2024 10:54 AM CDT) Case Report Dermatopathology Report Case: [id number] Authorizing Provider: Sarah Lind DO Collected: 07/25/2024 10:54 AM Ordering Location: [facility] - Received: 07/25/2024 04:13 PM DermPath Lab Pathologist: Garland Fuller MD Specimen: Skin, right lateral thigh 4:05 PM CDT DERMATOPATHOLOGY LABORATORY Final Diagnosis Specimen A. SKIN, right lateral thigh: TRICHILEMMAL (PILAR) CYST WITH CALCIFICATION (L72.12) 4:05 PM CDT DERMATOPATHOLOGY LABORATORY at 1605 CDT Clinical History DF R/O Atypia 4:05 PM CDT DERMATOPATHOLOGY LABORATORY Gross Description Specimen A: Received is one formalin filled container labeled with the patient's name and designated right lateral thigh. The specimen consists of a shave biopsy measuring 2 pieces [id number] mm. Jar 0. 4:05 PM T DERMATOPATHOLOGY LABORATORY Microscopic Description Specimen A. SKIN, right lateral thigh: Sections show a cyst that is lined by stratified squamous epithelium that shows trichilemmal keratinization (no granular layer). There is homogeneous pink keratin and aggregates of homogenous amorphous basophilic material consistent with calcium within the cyst. 4:05 PM CDT DERMATOPATHOLOGY LABORATORY Disclaimer An external and internal positive and negative controls are appropriate for the histochemical, immunohistochemical and immunofluorescence stain(s) in this case (if any), except where stated explicitly. The performance characteristics of the stain(s) cited in this report were developed and its performance characteristic determined by the Dermatopathology Laboratory at [facility], directed by Dr. Angelo Fuller. These tests need not be, and therefore are not, approved by the [place] Food and Drug Administration. The tests are used for clinical purposes. Billing Codes Specimen Charges Stain Charges 97831 1 4:05 PM CDT DERMATOPATHOLOGY LABORATORY Embedded Images 4:05 PM CDT DERMATOPATHOLOGY LABORATORY Pathology/Cytolo gy TISSUE SPECIMEN FROM SKIN / Unknown 07/25/2024 10:54 AM CDT 07/25/2024 4:13 PM CDT us Sarah Lind DO LAB - PATHOLOGY/CYTOLOGY ORDERABLES Final Result DERMATOPATHOLOGY LABORATORY [facility] - Department of Dermatology [address], [address] [phone] documented in this encounter Visit Diagnoses Not on filedocumented in this encounter Care Teams Speech/Language Therapist Relationship Specialty Start Date End Date Daylin Pérez MD [address] [place] [address] PCP - General Family Medicine 02/02/17 documented as of this encounter
--- OUTSIDE RECORDS SUMMARY | 2025-06-30 11:43 | XMS_ITS | Clinical Summary ---
Author Organization [facility] Address [address] [place] [address] Phone Care Team Providers Care Political Researcher Name Role Phone Kush Rocha MD Primary Care Provider Allergies Active Allergy Reactions Criticality Noted Date Comments Latex Rash Low 03/31/2022 Medications acyclovir (ZOVIRAX) 5 % Ointment Apply to affected area qid prn for herpes flare up 15 g 2 5 Active amLODIPine (NORVASC) 5 MG Tablet Take 1 Tablet by mouth daily. 90 Tablet 1 5 Active levothyroxine (SYNTHROID) 75 MCG Tablet Take 1 Tablet by mouth daily. 90 Tablet 1 5 Active levothyroxine (SYNTHROID) 75 MCG Tablet Take 1 Tablet by mouth daily. 90 Tablet 1 5 06/05/20 25 Discontinu ed(Reorder ) amLODIPine (NORVASC) 5 MG Tablet Take 1 Tablet by mouth daily. 90 Tablet 5 06/05/20 25 Discontinu ed(Reorder ) Active Problems Problem Noted Date Diagnosed Date Essential hypertension, benign 06/05/2025 Hoarseness of voice 06/05/2025 History of glaucoma 12/25/2024 Overview (12/25/2024): H/O stent placement- right eye Recurrent genital herpes 12/25/2024 Encounters Date Type Department Care Team Description 06/05/2025 1:20 PM CDT Office Visit [facility] [address] [place] [phone] Kush Rocha MD Essential hypertension, benign (Primary Dx); Chronic foot pain, right; Skin cancer screening; Other specified hypothyroidism; Hoarseness of voice Discharge Disposition: Discharged to home or Selfcare 06/05/2025 Travel 05/11/2025 2:55 PM CDT - 05/11/2025 11:59 PM CDT [facility] [address] [place] [address] Provider, Not On File Discharge Disposition: Discharged to home or Selfcare 05/11/2025 2:55 PM CDT - 05/11/2025 11:59 PM CDT Hospital Encounter [facility] [address] [place] [address] Provider, Not On File Discharge Disposition: Discharged to home or Selfcare 05/11/2025 2:54 PM CDT Hospital Encounter [facility] [address] [place] [address] Provider, Not On File Discharge Disposition: Discharged to home or Selfcare 05/11/2025 12:45 PM CDT - 05/11/2025 2:53 PM CDT Hospital Encounter [facility] Mammography [address] [place] [address] Kush Rocha MD Discharge Disposition: Discharged to home or Selfcare 05/11/2025 Travel 04/13/2025 Telephone [facility] Internal Medicine [facility] [address] [place] [address] Kush Rocha MD 04/09/2025 11:15 AM CDT Office Visit [facility] Internal Medicine [facility] [place] [phone] Kush Rocha MD Irregular bowel habits (Primary Dx); Breast cancer screening by mammogram; Essential hypertension, benign Discharge Disposition: Discharged to home or Selfcare 04/09/2025 Travel from Last 3 Months Family History Medical History Relation Name Comments No Known Problems Brother 1 No Known Problems Brother 2 No Known Problems Brother 3 No Known Problems Sister Relation Name Status Comments Brother 1 Alive Brother 2 Alive Brother 3 Alive Father Mother Sister Alive Social History Tobacco Use Types Packs/Day Years Used Date Smoking Tobacco: Never Passive Smoke Exposure: Never Smokeless Tobacco: Never Tobacco Cessation:Counseling Given: No Alcohol Use Standard Drinks/Week Comments Not Currently 0 (1 standard drink = 0.6 oz pur e alcohol) [facility] Utilities Answer Date Recorded In the past 12 months has [employer] electric, gas, oil, or water company threatened to shut off services in your home? No 12/25/2024 Social Connection and Isolation Panel Answer Date Recorded In a typical week, how many times do you talk on the phone with family, friends, or neighbors? More than three times a week 12/25/2024 How often do you get togethe r with friends or relatives? Twice a week 12/25/2024 How often do you attend [facility] or anabaptist services? Patient declined 12/25/2024 Do you belong to any clubs o r organizations such as faith groups, unions, fraternal or athletic groups, or school groups? Yes 12/25/2024 How often do you attend meet ings of the clubs or organizations you belong to? More than 4 times per year 12/25/2024 Are you , , di vorced, , never , or living with a partner? 12/25/2024 AUDIT-C Answer Date Recorded Q1: How often do you have a drink containing alc ohol? 2-4 times a month 12/25/2024 Q2: How many drinks containi ng alcohol do you have on a typical day when you are drinking? 1 or 2 12/25/2024 Q3: How often do you have si x or more drinks on one occasion? Never 12/25/2024 Overall Financial Resource Strain (CARDIA) Answe r Date Recorded How hard is it for you to pa y for the very basics like food, housing, medical care, and heating? Not very hard 12/25/2024 PHQ-2 Answer Date Recorded Total Score - Questions 1-9 0 02/0 12/2024 [facility] of Occupat ional Health - Occupational Stress Questionnaire Answer Date Recorded Do you feel stress - tense, restless, nervous, or anxious, or unable to sleep at night because your mind is troubled all the time - these days? Only a little 12/25/2024 Exercise Vital Sign Answer Date Recorde d On average, how many days pe r week do you engage in moderate to strenuous exercise (like a brisk walk)? 4 days 12/25/2024 On average, how many minutes do you engage in exercise at this level? 30 min 12/25/2024 Hunger Vital Sign Answer Date Recorded Within the past 12 months, y ou worried that your food would run out before you got the money to buy more. Never true 12/26/19 25 Within the past 12 months, t he food you bought just didn't last and you didn't have money to get more. Never true 12/25/2024 PRAPARE - Transportation Answer Date Re corded In the past 12 months, has l ack of transportation kept you from medical appointments or from getting medications? No 12/2024 In the past 12 months, has l ack of transportation kept you from meetings, work, or from getting things needed for daily living? No 12/25/2024 Housing Stability Vital Sign Answer Shayne e Recorded In the last 12 months, was t here a time when you were not able to pay the mortgage or rent on time? No 12/25/2024 In the past 12 months, how m any times have you moved where you were living? 0 12/25/2024 At any time in the past 12 m [facility], were you homeless or living in a usp (including now)? No 12/25/2024 Sexually Active Control Partners Comments Not Currently Comments No Sex and Gender Information Value Date Recorded Sex Assigned at Not on file Legal Sex Female 2:02 PM MANAGER DEVELOPMENT Gender Identity Not on file Sexual Orientation Not on file Last Filed Vital Signs Vital Sign Reading Time Taken Comments Blood Pressure 130/70 06/05/2025 1:12 PM CDT Pulse 78 06/05/2025 1:12 PM CDT Temperature 36.4 C (97.6 F) 06/05/2025 1:12 PM CDT Respiratory Rate 12 04/09/2025 11:21 AM CDT Oxygen Saturation 98% 06/05/2025 1:12 PM CDT Inhaled Oxygen Concentration - - Weight 57.6 kg (127 lb) 06/05/2025 1:12 PM CDT Height 152.4 cm (5') 06/05/2025 1:12 PM CDT Body Mass Index 24.8 06/05/2025 1:12 PM CDT Plan of Treatment Upcoming Encounters Date Type Department Care Team (Late st Contact Info) Description 12/06/2025 2:20 PM MANAGER DEVELOPMENT Office Visit [facility] - [facility] Care - [place] [address] [place] [address] Kush Rocha MD [address] [place] [address] Health Maintenance Due Date Last Done Comments Hepatitis C Virus (HCV) Screening 1955 TdaP Immunization 1955 Colonoscopy 2000 Immunochemical Fecal Occult Blood 2000 Pneumococcal Immunization (50+ years) (1 of 1 - PCV) 2005 Zoster Immunization (1 of 2) 2005 Influenza Immunization (#1) 2025 SARS-COV-2 Immunization (3 - season) 2025 02/12/2021, 01/15/2021 DEXA Bone Density 01/09/2026 01/10/2024, 01/10/2024 Mammogram 05/11/2026 05/11/2025, 0305/2024, 01/10/2024, Additional history exists Cologuard 11/23/2026 11/23/2023, 11/15/2023 Colorectal Cancer Screening 11/23/2026 Respiratory Syncytial Virus (RSV) Immunization (Adult) (1 - 1-dose 75+ series) 2030 Hepatitis B Immunization Aged Out No longer eligible based on patient's age to complete this topic Human Papillomavirus (HPV) Immunization Aged Out No longer eligible based on patient's age to complete this topic Meningococcal Immunization (ACWY) Aged Out No longer eligible based on patient's age to complete this topic Rotavirus Immunization Aged Out No lo nger eligible based on patient's age to complete this topic Procedures Procedure Name Priority Date/Time Associated Diagnosis Comments SAIDA REFERENCE IMAGES FOR IMAGE IMPORT Routine 05/11/2025 2:55 PM CDT SAIDA REFERENCE IMAGES FOR IMAGE IMPORT Routine 05/11/2025 2:55 PM CDT SAIDA REFERENCE IMAGES FOR IMAGE IMPORT Routine 05/11/2025 2:54 PM CDT SAIDA SCREENING BILATERAL DIGITAL W CAD W JINNY Routine 05/11/2025 1:30 PM CDT Breast cancer screening by mammogram BONE DENSITY GENERIC 01/10/2024 12:00 AM CDT COLOGUARD 11/23/2023 12:00 AM MANAGER DEVELOPMENT from Last 3 Months or Most Recently Relevant to Health Maintenance Results * SAIDA REFERENCE IMAGES FOR IMAGE IMPORT (05/11/2025 2:55 PM CDT) Only the most recent of3 resultswithin the time period is included. us Not On File Provider IMG MAMMO ORDERABLES Final Result * SAIDA SCREENING BILATERAL DIGITAL W CAD W JINNY (05/11/2025 1:30 PM CDT) Anatomical Region Laterality Modality breast Bilateral Mammography 05/11/2025 2:35 PM CDT Narrative 05/14/2025 7:28 AM CDT - SAIDA SCREENING BILATERAL DIGITAL W CAD W JINNY BILATERAL DIGITAL SCREENING MAMMOGRAM 3D/2D WITH CAD WITH MEDIOLATERAL OBLIQUE CRANIOCAUDAL: 05/11/2025 The study was acquired using digital technology and interpreted from soft copy. Current study was also evaluated with ICAD version 7.2. 2D digital mammographic views, as well as 3D digital tomosynthesis were performed in the CC and MLO projections. CLINICAL: Routine screening. Patient has no complaints. No personal history of cancer. Maternal great aunt had breast cancer. COMPARISONS: Comparison is made to exams dated: 01/10/2024, 09/10/2022, and 08/02/2020 [facility]. BREAST TISSUE:There are scattered areas of fibroglandular density. FINDINGS: No significant masses, calcifications, or other findings are seen in either breast. There has been no significant interval change. IMPRESSION: NEGATIVE There is no mammographic evidence of malignancy. A 1 year screening mammogram is recommended. A letter will be sent to the patient with these results. The patient will be entered into a reminder system with a target due date of 1 year for her next screening exam. Electronically signed by: Vera Rivers M.D. ll/penrad:05/13/2025 18:56:05 Sales Representative Education Courses(s): RT Sylvester(R)(M), [facility] letter sent: Normal Exam Reading location: [place] Mammogram BI-RADS: Category 1: Negative Procedure Note Vera Rivers MD - 05/14/2025 - SAIDA SCREENING BILATERAL DIGITAL W CAD W JINNY BILATERAL DIGITAL SCREENING MAMMOGRAM 3D/2D WITH CAD WITH MEDIOLATERAL OBLIQUE CRANIOCAUDAL: 05/11/2025 The study was acquired using digital technology and interpreted from soft copy. Current study was also evaluated with ICAD version 7.2. 2D digital mammographic views, as well as 3D digital tomosynthesis were performed in the CC and MLO projections. CLINICAL: Routine screening. Patient has no complaints. No personal history of cancer. Maternal great aunt had breast cancer. COMPARISONS: Comparison is made to exams dated: 01/10/2024, 09/10/2022, and 08/02/2020 [facility]. BREAST TISSUE:There are scattered areas of fibroglandular density. FINDINGS: No significant masses, calcifications, or other findings are seen in either breast. There has been no significant interval change. IMPRESSION: NEGATIVE There is no mammographic evidence of malignancy. A 1 year screening mammogram is recommended. A letter will be sent to the patient with these results. The patient will be entered into a reminder system with a target due date of 1 year for her next screening exam. Electronically signed by: Vera Rivers M.D. ll/penrad:05/13/2025 18:56:05 Sales Representative Education Courses(s): RT Sylvester(R)(M), [facility] letter sent: Normal Exam Reading location: [place] Mammogram BI-RADS: Category 1: Negative us Kush Rocha MD IMG MAMMO ORDERABLES Final Result * BONE DENSITY GENERIC (01/10/2024 12:00 AM CDT) 01/10/2024 us Provider Scan IMG DEXA ORDERABLES Final Result SCAN * COLOGUARD (11/23/2023 12:00 AM MANAGER DEVELOPMENT) 11/23/2023 us Provider Scan BODY FLUIDS & STOOLS ORDERABLES Final Result SCAN from Last 3 Months or Most Recently Relevant to Health Maintenance Insurance MEDICARE C [employer] Care Teams Political Researcher Relationship Specialty Start Date End Date Kush Rocha MD PCP - General Internal Medicine 11/27/24
[2025-06-30 11:50] VITALS: BP 150/81; PULSE 83; RESP 20; TEMP 36.7; O2SAT 100
[2025-06-30 12:07] LABS: EDSTREPNEGPOS1 Negative (Negative)
--- NOTE | 2025-06-30 12:20 | ED.URI ---
HPI - URI/Sore Throat General Chief Complaint: Upper Respiratory Infection Stated Complaint: headache/throat Time Seen by Provider: 06/30/25 12:10 Source: patient and RN notes reviewed Mode of arrival: ambulatory Limitations: no limitations History of Present Illness HPI Narrative: 70-year-old female presents Express Care complaining of sore throat, headache, congestion for 4 days. Patient denies any fevers, body aches, chills, nausea vomiting, chest pain, shortness of breath, cough, runny nose, earache, or any other symptoms. Patient says her certain if they can other was diagnosed with strep. Patient has been taking Excedrin with some relief. Related Data Allergies Allergy/AdvReac Type Severity Reaction Status Date / Time latex Allergy Mild Hives Verified 06/30/25 11:55 Review of Systems Review of Systems: CONSTITUTIONAL: Denies fever, chills, or sweats. EYES: Denies visual changes, redness, or discharge. ENT: Denies rhinorrhea, or otalgia. Positive for sore throat and congestion. CARDIOVASCULAR: Denies chest pain, palpitations, or edema. RESPIRATORY: Denies cough or dyspnea. GASTROINTESTINAL: Denies abdominal pain, nausea, vomiting, or diarrhea. GENITOURINARY: Denies dysuria or hematuria. SKIN: Denies rash or itching. MUSCULOSKELETAL: Denies back pain, joint pain, or myalgia. NEUROLOGIC: Denies numbness, or weakness. Positive for headache. PSYCHIATRIC: Denies anxiety or depression. All other systems reviewed are negative, except as documented in HPI. [facility] Past Medical History Medical History Otitis media due to 2019 novel coronavirus Bilateral otitis media with effusion Fluttering sensation of heart Family History Family History Mother Hypertension Father Family history of aortic aneurysm Mother Depression Family history of cataracts Asthma Grandparent Family history of alcoholism Cerebrovascular accident Sibling Family history of hepatitis Other Family history of malignant neoplasm Social History Social History Smoking status: Never smoker Second hand tobacco smoke exposure: No Alcohol intake: current Drinks per week: 2 Substance use: never Substance use type: does not use Lack of Transportation: No Lack of Food: Never True Current Housing: I Have Housing Concerned About Future Housing: No Difficulty Paying Gas/Electric Bills: No Difficulty Paying for Meds: No Currently Unemployed: No Education: Bachelor's Degree Difficulty w/ Childcare or Family Care: No Living arrangements: alone Occupation/Education: retired Gender identity (if verbalized by the patient): Female Sexual Orientation (if Verbalized by the Patient): Straight or Heterosexual Agree to blood products: Yes Comments At the time of my signature, I reviewed and agree with the nursing past medical, surgical, social, and family history. There is no relevant family history pertinent to the patient complaint. Exam Narrative: GENERAL: This is a well-nourished, well-developed adult, in no apparent distress. They are non ill-appearing, nontoxic appearing. HEAD: normocephalic, atraumatic. EYES: Sclera clear/white. Conjunctiva normal. Vision is grossly intact. Extraocular movements intact EARS: External ears normal, auditory canals clear and without drainage, TMs normal without perforation. Hearing grossly intact. NOSE: External nose normal with no obvious nasal discharge, nasal turbinates erythema without swelling, no rhinorrhea. THROAT: Mucous membranes moist, posterior pharynx erythema without swelling, no exudate. Tonsils without redness or swelling. Uvula midline. Postnasal drip present. NECK: Neck supple, mild tenderness with mild cervical lymphadenopathy, no masses or thyromegaly. CARDIOVASCULAR: Regular rate and rhythm without murmurs, gallops, or rubs. RESPIRATORY: Clear to auscultation. Breath sounds equal bilaterally. No wheezes, rales, or rhonchi. SKIN: warm, Dry, intact with no suspicious lesions or rash, good texture and turgor. NEURO: awake, alert, and oriented to person, place and time. There were no obvious focal neurologic abnormalities. EXTREMITIES: No joint tenderness, effusion, or edema noted. Course Course Emergency Course: Portions of this record may have been created with voice recognition software Level of Care: Express Care Visit Vital Signs Vital signs: Vital Signs Temperature 98.1 F 06/30/25 11:50 Pulse Rate 83 06/30/25 11:50 Respiratory Rate 20 06/30/25 11:50 Blood Pressure 150/81 H 06/30/25 11:50 Pulse Oximetry 100 06/30/25 11:50 Oxygen Delivery Room Air 06/30/25 11:50 Temperature 98.1 F 06/30/25 11:50 Pulse Rate 83 06/30/25 11:50 Respiratory Rate 20 06/30/25 11:50 Blood Pressure 150/81 H 06/30/25 11:50 Pulse Oximetry 100 06/30/25 11:50 Oxygen Delivery Room Air 06/30/25 11:50 Reviewed MDM - URI/Sore Throat MDM Narrative Medical decision making narrative: Rapid strep negative. A throat culture is pending. Patient's symptoms likely viral etiology. Through shared decision making since patient has exposure to strep throat, she elected to go ahead and wait for any antibiotic therapy until culture result. Discussed physical exam findings. Advised supportive measures and signs/symptoms to go to the ER. Pt is appropriate for outpt treatment and f/u. Differential Diagnosis Differential diagnosis: Likely upper respiratory infection, sinusitis, viral infection and pharyngitis Lab Data Attestation: I reviewed the patient's lab results. Labs: Lab Results 06/30/25 Range/Units 11:52 POC Grp A Strep Screen Negative (Negative) Critical Care Time Critical Care Time Critical Care Time: No Discharge Plan Discharge Clinical Impression: Upper respiratory infection Qualifiers: URI type: unspecified viral URI Qualified Code(s): J06.9 - Acute upper respiratory infection, unspecified Patient Disposition: Home Condition: Stable Instructions: Antibiotic Form, Upper Respiratory Infection (ED) Additional Instructions: Your rapid strep swab was negative today at [facility]. You will be notified in a few days if the culture comes back positive for strep, and appropriate antibiotics will be called in for you at that time. Your symptoms are likely due to a viral illness, which is not treated with antibiotics. Viral symptoms can be present for up to 10-14 days. Take Tylenol or ibuprofen for fever or pain. Follow the instructions on the bottle. Do not take ibuprofen if your taking aspirin for pain. Rest and stay hydrated. Follow up with your PCP in 3-5 days if symptoms are not improving. Go to the ER immediately if you develop difficulty breathing or swallowing Patient Language: Setswana Prescriptions: No Action levothyroxine 75 mcg tablet 75 mcg PO DAILY Qty: 90 1RF amlodipine 5 mg tablet 5 mg PO DAILY Qty: 90 1RF Follow-up/Referrals: Aj,Kush Muniz MD [Primary Care Provider, Unknown] Time of Disposition: 12:19
== END 2025-06-30 12:27 | disposition home or self-care (01) ==
PROVIDERS: PCP Internal Medicine
DX: J06.9 Acute upper respiratory infection, unspecified (principal)
CPT/HCPCS: 87081; 87880; 99213; G0463